=== PATIENT | female | born 1990 | race African-American/Black ===

== ENCOUNTER 2017-06-16 16:45 | Emergency (ER) | payer OTHER ==
[2017-06-16 17:12] VITALS: BP 142/92
--- NOTE | 2017-06-16 17:22 | ED Physician Documentation ---
History of Present Illness - Stated complaint Stated Complaint: FEMALE /BACK PX - Chief complaint Chief Complaint: General - History obtained from History obtained from: Patient - History of Present Illness Timing: Other (One day of urinary frequency and low back pain and dysuria and she has had a small amount of blood from her urethra today. Started a new relationship recently and is sexually active. Denies fever but does have mild nausea.) Review of Systems Constitutional: denies: Fever, Chills Respiratory: denies: Dyspnea, Cough GI: reports: Nausea. denies: Abdominal Pain, Vomiting : reports: Dysuria, Frequency PD PAST MEDICAL HISTORY - Past Medical History Cardiovascular: None Respiratory: None Neuro: None Endocrine/Autoimmune: None GI: None ACCOUNTS RECEIVABLE ASSOCIATE: None : None HEENT: None Psych: None Musculoskeletal: None Derm: None - Past Surgical History Past Surgical History: Yes /ACCOUNTS RECEIVABLE ASSOCIATE: section - Present Medications Home Medications: Ambulatory Orders Medication Instructions Recorded Confirmed Ondansetron Odt [Zofran] 4 mg TL Q6H PRN #10 tablet 10/26/14 Phenazopyridine HCl [Pyridium] 200 mg PO TID #6 tablet 06/16/17 Sulfamethoxazole/Trimethoprim 1 each PO BID 5 Days 06/16/17 [Sulfamethoxazole-Tmp Ds Tablet] - Allergies Allergies/Adverse Reactions: Allergies Allergy/AdvReac Type Severity Reaction Status Date / Time No Known Drug Allergies Allergy Verified 09/12/16 21:30 - Social History Does the pt smoke?: No Smoking Status: Never smoker Does the pt drink ETOH?: Yes Does the pt have substance abuse?: No - Immunizations Immunizations are current?: Yes - POLST Patient has POLST: No PD ED PE NORMAL - Vitals Vital signs reviewed: Yes - General General: Alert and oriented X 3, No acute distress - Abdomen Abdomen: Soft, Non tender - Back Back: No CVA TTP - Neuro Neuro: Alert and oriented X 3, Normal speech - Psych Psych: Normal mood, Normal affect Results - Vitals Vitals: Vital Signs - 24 hr 06/16/17 17:10 Temperature 36.3 C L Heart Rate 75 Respiratory 14 Rate Blood Pressure 142/92 H O2 Saturation 100 Oxygen O2 Source Room air - Labs Labs: Laboratory Tests 06/16/17 06/16/17 17:12 17:14 Urine Color YELLOW Urine Clarity SL. CLOUDY Urine pH 6.0 Ur Specific Timbo >=1.030 H >=1.030 H Urine Protein 100 H Urine Glucose (UA) NEGATIVE Urine Ketones 40 H Urine Occult Blood LARGE H Urine Nitrite POSITIVE H Urine Bilirubin NEGATIVE Urine Urobilinogen 0.2 (NORMAL) Ur Leukocyte Esterase SMALL H Urine RBC TNTC H Urine WBC >25 H Ur Squamous Epith Cells FEW Squamous Urine Bacteria Few Ur Microscopic Review INDICATED Urine Culture Comments INDICATED Urine HCG, Qual NEGATIVE Departure - Departure Disposition: Home, Self Care Clinical Impression: Cystitis Condition: Good Record reviewed to determine appropriate education?: Yes Instructions: ED UTI Cystitis Female Prescriptions: Phenazopyridine HCl [Pyridium] 200 mg PO TID #6 tablet Sulfamethoxazole/Trimethoprim [Sulfamethoxazole-Tmp Ds Tablet] 1 each PO BID 5 Days Comments: We will culture your urine, the results should be done in 48-72 hours. If an antibiotic change is necessary we will call you. Return if worse in the meantime, especially if you develop increasing flank pain, fevers, or cannot keep down the medication. Your blood pressure was elevated today on check into the emergency department. This does not mean that you have hypertension, it is a common phenomenon to come to the emergency department and have elevated blood pressure. I recommend that she see your primary care physician within the week to have it rechecked when you are feeling better.
[2017-06-16 17:32] LABS: BILIRUBIN,URINE NEGATIVE (NEGATIVE)
[2017-06-16 17:38] LABS: UA w/ MICROSCOPIC CHARGE YES; WBC,URINE >25 /HPF (0-5)
[2017-06-16 17:39] LABS: UR CULTURE IF IND INDICATED
[2017-06-16 17:44] LABS: HCG UR QUAL NEGATIVE
[2017-06-16] MEDS ORDERED: SULFAMETH/TRIMETH DS 800/160 MG TABLET PO STA (17:47)
[2017-06-16] MEDS ORDERED: PHENAZOPYRIDINE 100 MG TABLET PO STA (17:48)
[2017-06-16] MEDS ORDERED: SULFAMETH/TRIMETH DS 800/160 MG TABLET PO ONE (18:00)
[2017-06-16] MEDS ORDERED: PHENAZOPYRIDINE 100 MG TABLET PO ONE (18:00)
== END 2017-06-16 18:00 | disposition home or self-care (01) ==
LOC: ED 16:45
DX: N30.90 Cystitis, unspecified without hematuria (principal); R03.0 Elevated blood-pressure reading, without diagnosis of hypertension
CPT/HCPCS: 81001; 81025; 87077; 87086; 87181; 87491; 87591; 99283; A9270; 81003

== ENCOUNTER 2017-11-06 02:14 | Emergency (ER) | payer OTHER ==
[2017-11-06] MEDS ORDERED: diphenhydrAMINE INJ 50 MG/ML VIAL IVP STA (02:45)
[2017-11-06] MEDS ORDERED: SODIUM CHLORIDE 0.9% 1,000 ML IV ONE (02:45)
[2017-11-06] MEDS ORDERED: KETOROLAC 60 MG/2 ML VIAL IVP STA (02:46)
[2017-11-06] MEDS ORDERED: PROCHLORPERAZINE 10 MG/2 ML VIAL IVP STA (02:46)
[2017-11-06] MEDS ORDERED: DEXAMETHASONE 10 MG/ML VIAL IVP STA (02:47)
--- NOTE | 2017-11-06 04:16 | ED Physician Documentation ---
PD HPI HEADACHE - Stated complaint Stated Complaint: HEADACHE - Chief complaint Chief Complaint: Neuro - History obtained from History obtained from: Patient - History of Present Illness Timing - onset: How many days ago (2) Timing - details: Gradual onset, Still present Worst headache ever?: Worst headache ever? (No) Location: Left Associated symptoms: Nausea. No: Fever, Stiff neck Worsened by: Light, Noise, Moving Contributing factors: No: Possible carbon monoxide, Recent illness, Trauma Similar symptoms before: Diagnosis (History of migraine headaches.) - Additional information Additional information: The patient is an otherwise healthy 26-year-old female who has history of migraine headaches, who presents with a left-sided headache of 2 days' duration. She reports associated photosensitivity, and nausea with vomiting 4. She denies fever, numbness or weakness. The last time she had a migraine was about one month ago. She normally takes Fioricet and Zofran for her migraines, but ran out of medication 2 months ago. Review of Systems Constitutional: denies: Fever Eyes: reports: Photophobia Ears: denies: Tinnitus/ringing Nose: denies: Congestion Throat: denies: Sore throat Cardiac: denies: Chest pain / pressure Respiratory: denies: Dyspnea, Cough GI: reports: Nausea, Vomiting. denies: Abdominal Pain : denies: Dysuria Skin: denies: Rash Musculoskeletal: denies: Neck pain, Back pain Neurologic: reports: Headache. denies: Focal weakness, Numbness, Altered mental status PD PAST MEDICAL HISTORY - Past Medical History Cardiovascular: None Respiratory: None Neuro: Headache/migraine Endocrine/Autoimmune: None GI: None PIGGYBACK CLERK: None : None HEENT: None Psych: None Musculoskeletal: None Derm: None Other Past Medical History: migraines - Past Surgical History Past Surgical History: Yes /PIGGYBACK CLERK: section - Present Medications Home Medications: Ambulatory Orders Medication Instructions Recorded Confirmed Ondansetron Odt [Zofran] 4 mg TL Q6H PRN #10 tablet 10/26/14 06/16/17 Ethinyl Estradiol/Drospirenone 1 tab PO DAILY 06/16/17 06/16/17 [Elyssa 28 Tablet] Loratadine [Claritin] 1 tab PO DAILY 06/16/17 06/16/17 Phenazopyridine HCl [Pyridium] 200 mg PO TID #6 tablet 06/16/17 Sulfamethoxazole/Trimethoprim 1 each PO BID 5 Days tablet 06/16/17 [Sulfamethoxazole-Tmp Ds Tablet] Terbinafine [Lamisil] 1 tab PO DAILY 06/16/17 06/16/17 Butalbital/Aspirin/Caffeine 1 each PO Q6HR PRN #10 capsule 11/06/17 [Fiorinal 50-325-40 mg Capsule] Promethazine [Phenergan] 25 - 50 mg PO Q6H PRN #10 tab 11/06/17 - Allergies Allergies/Adverse Reactions: Allergies Allergy/AdvReac Type Severity Reaction Status Date / Time No Known Drug Allergies Allergy Verified 11/06/17 02:27 - Social History Does the pt smoke?: No Smoking Status: Never smoker Does the pt drink ETOH?: No Does the pt have substance abuse?: No - Immunizations Immunizations are current?: Yes - POLST Patient has POLST: No PD ED PE NORMAL - Vitals Vital signs reviewed: Yes (Initially hypertensive.) - General General: Alert and oriented X 3, Well developed/nourished, Other (Romano her eyes from the light.) - HEENT HEENT: Atraumatic, PERRL, EOMI, Ears normal, Moist mucous membranes, Pharynx benign, Other (Fundi with sharp disc margins bilaterally.) - Neck Neck: Supple, no meningeal sign, No adenopathy, No JVD - Cardiac Cardiac: RRR, No murmur - Respiratory Respiratory: No respiratory distress, Clear bilaterally - Abdomen Abdomen: Soft, Non tender - Back Back: No CVA TTP - Derm Derm: No rash - Extremities Extremities: No edema, No calf tenderness / cord - Neuro Neuro: Alert and oriented X 3, No motor deficit, No sensory deficit Results - Vitals Vitals: Oxygen O2 Source Room air PD MEDICAL DECISION MAKING - ED course Complexity details: re-evaluated patient, considered differential, d/w patient ED course: The patient's presentation is most consistent with recurrent migraine headache. Her presentation does not suggest meningitis, temporal arteritis, intracranial hemorrhage, or pseudotumor cerebri. Treatment in the emergency department included administration of normal saline 1 L IV, Compazine 10 mg IV, Benadryl 25 mg IV, ketorolac 30 mg IV, and dexamethasone 10 mg IV. Her symptoms resolved with the above treatment. She is being discharged with prescription for Fioricet 15 tablets, and Zofran. I discussed with her the importance of outpatient follow-up, as well as potentially worrisome signs or symptoms that should prompt reevaluation in the emergency department. Departure - Departure Disposition: 01 Home, Self Care Clinical Impression: Migraine Qualifiers: Migraine type: unspecified Status migrainosus presence: without status migrainosus Intractability: not intractable Qualified Code(s): G43.909 - Migraine, unspecified, not intractable, without status migrainosus Condition: Stable Instructions: ED Headache Migraine Follow-Up: RENUKA MALLORY [Primary Care Provider] - Prescriptions: Butalbital/Aspirin/Caffeine [Fiorinal 50-325-40 mg Capsule] 1 each PO Q6HR PRN # 10 capsule PRN Reason: Headache Promethazine [Phenergan] 25 - 50 mg PO Q6H PRN #10 tab PRN Reason: Nausea / Vomiting Comments: Drink plenty of fluids. You can use Fioricet as prescribed if needed for recurrent headache. Follow up with your primary physician this week. Call to schedule appointment. Return to the emergency department if you develop increasing headache, persistent vomiting, or otherwise worsening symptoms. Forms: Activity restrictions Discharge Date/Time: 11/06/17 05:22
[2017-11-06 05:23] VITALS: BP 140/88
== END 2017-11-06 05:22 | disposition home or self-care (01) ==
LOC: ED 02:14
DX: G43.909 Migraine, unspecified, not intractable, without status migrainosus (principal)
CPT/HCPCS: 96361; 96374; 96375; 99283; 99284